=== PATIENT | female | born 1990 | race Caucasian/White ===

== ENCOUNTER 2019-07-25 18:40 | Outpatient (CLI) | payer OTHER, SELFPAY ==
[2019-07-18 10:00] VITALS: BMI 40.7
[2019-07-25 19:50] VITALS: BMI 40.5
[2019-07-25 20:25] LABS: Color, Urine Yellow (Yellow); Glucose, Dipstick 250 mg/dl (Normal); Leukocyte Esterase-Dipstick Negative /ul (Negative); Nitrite-Dipstick Negative (Negative); Occult Blood-Urine Negative /ul (Negative); Protein-Dipstick 30 mg/dl (Negative); Specific Gravity, Urine 1.025 (1.002-1.030); Urine Bilirubin Dipstick Negative (Negative); Urine Clarity Sl. Cloudy (Clear); Urine Urobilinogen 1 mg/dl (Normal)
[2019-07-25 20:28] LABS: Ketone-Dipstick 150 mg/dl (Negative)
[2019-07-25 21:16] LABS: Bedside Glucose 197 mg/dL (70-110)
[2019-07-25 21:28] VITALS: RESP 18
--- NOTE | 2019-08-01 23:12 | OB.TRI.PN ---
Progress Notes Date of Service: 07/25/19 Progress Note: seen for back pain, no fever, some dysuria FHT: 150 Moderate variability appropriate for GA no decelerations positive accels toco no contractions\ a/p back pain- urine culture sent, ua shows some mild abnormalities. reviewed precautions with patient Laboratory Studies: Laboratory Tests 07/25/19 07/25/19 Range/Units 21:10 20:05 Urine Color Yellow (Yellow) Urine Clarity Sl. Cloudy (Clear) Urine pH 5.0 (5.0 - 8.0) Ur Specific [place] 1.025 (1.002-1.030) Urine Protein 30 H (Negative) mg/dl Urine Glucose (UA) 250 H (Normal) mg/dl Urine Ketones 150 H (Negative) mg/dl Urine Occult Blood Negative (Negative) /ul Urine Nitrite Negative (Negative) Urine Bilirubin Negative (Negative) mg/dL Urine Urobilinogen 1 H (Normal) mg/dl Ur Leukocyte Esterase Negative (Negative) /ul POC Glucose 197 H (70-110) mg/dL Multi Select Codes - Urinary/Genital Urinary/Genital CPT Codes: Other Procedure See Report - no charge
== END 2019-07-25 19:28 | disposition home or self-care (01) ==
LOC: WPOUT 18:50 → WP 18:51
PROVIDERS: Referring Provider Obstetrics & Gynecology; Visit Provider Obstetrics & Gynecology
DX: O26.899 Other specified pregnancy related conditions, unspecified trimester (principal); M54.9 Dorsalgia, unspecified; R30.0 Dysuria; R82.90 Unspecified abnormal findings in urine; Z3A.00 Weeks of gestation of pregnancy not specified
CPT/HCPCS: 59025; 59050; 81002; 82962; 87086; 87088; 94760; 99218; G0378

== ENCOUNTER → 2019-08-01 14:56 | Outpatient (CLI) | payer OTHER, SELFPAY ==
[2019-08-01 14:32] VITALS: BMI 40.5
[2019-08-01 15:14] LABS: Hematocrit 35.2 % (37-47); Hemoglobin 11.5 g/dL (12.0-15.0); Mean Corp Hgb Conc 32.7 g/dL (32-36); Mean Corpuscular Hgb 27.6 pg (27.0-32.0); Mean Corpuscular Volume 84.4 fL (81-99); Mean Platelet Vol. 10.2 fl (6.2-12.0); POSITIVE COUNT YES; POSITIVE MORPHOLOGY YES; Platelet Count 216 K/mm3 (150-450); RBC Distribution Width CV 15.3 % (11.6-14.6); RBC Distribution Width SD 46.7 fl (35.1-43.9); Red Blood Count 4.17 M/mm3 (4.2-5.4); White Blood Count 5.8 K/mm3 (4.4-11.0)
[2019-08-01 15:15] LABS: Differential Indicated MANUAL DIFF
[2019-08-01 15:32] LABS: ALB/GLOB Ratio 0.5 RATIO (0.9-2.4); AST(SGOT) 23 U/L (15-37); Alanine Aminotransfer ALT/SGPT 42 U/L (13-56); Alkaline Phosphatase 189 U/L (45-117); Anion Gap 7 (5-15); BUN 7 mg/dL (7-18); BUN/Creat Ratio 18.8 RATIO (10-20); Chloride 107 mmol/L (98-107); Creatinine, Serum 0.37 mg/dL (0.55-1.02); EST Glomerular Filtration Rate 219 mL/min (>60); Est Glom Filt Rate - Afr Amer 265 mL/min (>60); Globulin 4.3 g/dL (2.2-4.2); Glucose 87 mg/dL (74-106); Protein, Total 6.3 g/dL (6.4-8.2); Sodium Level 139 mmol/L (136-145)
[2019-08-01 15:50] LABS: Eosinophil 6 % (0-5); Lymphocyte 16 % (19-41); Metamyelocyte 1 % (0-1); Monocyte 4 % (0-10); Myelocyte 2 (0-0); Neutrophil-Band 2 % (0-5); Neutrophil-Segmented 67 % (47-70); Promyelocyte 2 (0-0); Total Cells Counted 100 (MANUAL DIFF)
[2019-08-01 15:52] LABS: Absolute Lymphocyte Count 0.93 X10^3/uL (0.83-4.51)
[2019-08-01 15:53] LABS: Red Cell Morphology NORM C+C NORMAL (NORM C&C)
[2019-08-02 00:11] LABS: Platelet Estimate ADEQUATE (ADEQ); Platelet Morphology LARGE
[2019-08-04 09:58] LABS: Pathologist Review Reviewed
[2019-08-05 16:23] LABS: EBV Acute VCA IgM < 36.0 U/mL (0.0-35.9); EBV Early Antigen IgG <9.0 U/mL (0.0-8.9); EBV-VCA IgG 33.1 U/mL (0.0-17.9)
[2019-08-11 13:56] LABS: CMV Antibody IgG < 0.60 U/mL (0.00-0.59)
== END ==
PROVIDERS: Referring Provider Obstetrics & Gynecology; Visit Provider Obstetrics & Gynecology
DX: O75.2 Pyrexia during labor, not elsewhere classified (principal)
CPT/HCPCS: 36415; 80053; 85025; 86644; 86663; 86664; 86665

== ENCOUNTER → 2019-08-15 12:07 | Outpatient (CLI) | payer OTHER, SELFPAY ==
[2019-08-15 11:49] VITALS: BMI 40.5
[2019-08-15 12:44] LABS: Absolute Lymphocyte Count 0.95 X10^3/uL (0.83-4.51); Absolute Neutrophil Count 4.7 X10^3/uL (2.0-7.7); Basophil# 0.06 X10^3/uL; Basophil% 0.9 % (0-1); Eosinophil# 0.08 X10^3/uL; Eosinophils% 1.2 % (0-5); Hematocrit 37.6 % (37-47); Hemoglobin 12.3 g/dL (12.0-15.0); Lymphocyte # 0.95 X10^3/ul (4.0); Lymphocyte % 14.4 % (19-41); Mean Corp Hgb Conc 32.7 g/dL (32-36); Mean Corpuscular Hgb 27.9 pg (27.0-32.0); Mean Corpuscular Volume 85.3 fL (81-99); Mean Platelet Vol. 10.9 fl (6.2-12.0); Monocyte# 0.68 X10^3/uL; Monocyte% 10.3 % (0-10); NRBC Flagged by Analyzer 0 % (0-5); Neutrophil # 4.72 X10^3/uL (2.7-7.7); Neutrophil % 71.4 % (47-70); Platelet Count 267 K/mm3 (150-450); RBC Distribution Width CV 15.6 % (11.6-14.6); RBC Distribution Width SD 47.6 fl (35.1-43.9); Red Blood Count 4.41 M/mm3 (4.2-5.4); White Blood Count 6.6 K/mm3 (4.4-11.0)
[2019-08-15 12:59] LABS: ALB/GLOB Ratio 0.6 RATIO (0.9-2.4); AST(SGOT) 12 U/L (15-37); Alanine Aminotransfer ALT/SGPT 22 U/L (13-56); Albumin, Serum 2.7 g/dL (3.2-5.0); Alkaline Phosphatase 183 U/L (45-117); Anion Gap 10 (5-15); BUN 7 mg/dL (7-18); BUN/Creat Ratio 13.3 RATIO (10-20); Calcium,Total 9.4 mg/dL (8.5-10.1); Chloride 104 mmol/L (98-107); Creatinine, Serum 0.52 mg/dL (0.55-1.02); EST Glomerular Filtration Rate 148 mL/min (>60); Est Glom Filt Rate - Afr Amer 178 mL/min (>60); Globulin 4.5 g/dL (2.2-4.2); Glucose 247 mg/dL (74-106); Potassium 3.9 mmol/L (3.5-5.1); Protein, Total 7.2 g/dL (6.4-8.2); Sodium Level 136 mmol/L (136-145)
[2019-08-17 08:40] LABS: EBV Acute VCA IgM < 36.0 U/mL (0.0-35.9); EBV Early Antigen IgG <9.0 U/mL (0.0-8.9); EBV-VCA IgG 68.5 U/mL (0.0-17.9)
== END ==
PROVIDERS: Obstetrics & Gynecology; Referring Provider Nurse Practitioner Women's Health; Visit Provider Nurse Practitioner Women's Health
DX: O23.00 Infections of kidney in pregnancy, unspecified trimester (principal); Z3A.00 Weeks of gestation of pregnancy not specified
CPT/HCPCS: 36415; 80053; 85025; 86645; 86663; 86664; 86665

== ENCOUNTER → 2019-08-28 13:32 | Outpatient (CLI) | payer OTHER, SELFPAY ==
[2019-08-25 12:22] VITALS: BMI 40.5
--- NOTE | 2019-08-28 13:35 | US_ITS ---
STUDY: OBSTETRICAL ULTRASOUND - BIOPHYSICAL PROFILE REASON FOR EXAM: Female, 29 years old well-being. LMP: 01/02/19. PRIOR ULTRASOUND: None. TECHNIQUE: Transabdominal TECHNICAL QUALITY: Adequate. FINDINGS: There is a single intrauterine fetus. The fetus is in a cephalic presentation. There is demonstrated cardiac activity with a heart rate of 138 bpm. There is increased amniotic fluid consistent with polyhydramnios. The largest amniotic fluid pocket measures 11.4 cm. The amniotic fluid index (RAVINDRA) is 31.4 cm. The placenta is posterior in location and is not low lying. There are Grade 1 placental changes. Age by LMP: 34 weeks, 0 days. DONAVAN by LMP: 01/01/2019. BIOPHYSICAL PROFILE: Breathing Movements (FBM): 2 Gross Body Movements (GBM): 2 Tone (FT): 2 Amniotic Fluid Volume (AFV): 2 TOTAL SCORE: 8 / 8 US/Biophysical Profile IMPRESSION: Normal biophysical profile of 8. Polyhydramnios as described above. Electronically Signed: Nelia Drummond MD at 5:03 EDT , Service support ,
== END ==
PROVIDERS: Referring Provider Nurse Practitioner Women's Health; Visit Provider Nurse Practitioner Women's Health
DX: O09.93 Supervision of high risk pregnancy, unspecified, third trimester (principal); O23.00 Infections of kidney in pregnancy, unspecified trimester; O10.919 Unspecified pre-existing hypertension complicating pregnancy, unspecified trimester; O99.213 Obesity complicating pregnancy, third trimester; Z3A.00 Weeks of gestation of pregnancy not specified
CPT/HCPCS: 76818

== ENCOUNTER 2019-09-02 15:05 | Outpatient (CLI) | payer OTHER, SELFPAY ==
[2019-08-25 12:22] VITALS: BMI 40.5
--- NOTE | 2019-09-02 15:10 | US_ITS ---
STUDY: OBSTETRICAL ULTRASOUND - BIOPHYSICAL PROFILE REASON FOR EXAM: Female, 29 years old well being. LMP: January 02, 2019. PRIOR ULTRASOUND: August 28, 2019. TECHNIQUE: Transabdominal TECHNICAL QUALITY: Adequate. FINDINGS: There is a single intrauterine fetus. The fetus is in a cephalic presentation. There is demonstrated cardiac activity with a heart rate of 150 bpm. There is increased amniotic fluid consistent with polyhydramnios. The largest amniotic fluid pocket measures 12.2 cm. The amniotic fluid index (RAVINDRA) is 37.78 cm. The placenta is posterior in location and is not low lying. There are Grade 1 placental changes. Age by LMP: 34 weeks, 5 days. DONAVAN by LMP: October 09, 2019. BIOPHYSICAL PROFILE: Breathing Movements (FBM): 0 Gross Body Movements (GBM): 2 Tone (FT): 2 Amniotic Fluid Volume (AFV): 2 TOTAL SCORE: 6 / 8 US/Biophysical Profile IMPRESSION: 1. biophysical profile of 6/8. 2. Polyhydramnios. Electronically Signed: Eder Tafoya DO at 19:32 EDT Tel [phone], Service support ,
[2019-09-02 17:05] VITALS: BMI 28.0
--- NOTE | 2019-09-02 17:13 | OB.TRI.PN ---
Progress Notes Date of Service: 09/02/19 Progress Note: Patient presents for triage evaluation secondary to 6 out of 8 BPP FHT: 140 Moderate variability reactive no decelerations category I tracing [place]: No regular contractions Assessment and plan: Polyhydramnios 6 out of 8 BPP reactive NST, reassuring maternal and status patient discharged to home to follow-up as scheduled. 8 out of 10 BPP overall. See problem list details for additional plan information. - Problem List (1) Abnormal test Status: Acute Multi Select Codes - Urinary/Genital Urinary/Genital CPT Codes: 39080-89 non-stress test Interp
== END 2019-09-02 17:30 | disposition home or self-care (01) ==
LOC: US 16:44 → OBT 16:44
PROVIDERS: Referring Provider Nurse Practitioner Women's Health; Visit Provider Nurse Practitioner Women's Health
DX: O40.3XX0 Polyhydramnios, third trimester, not applicable or unspecified (principal); Z3A.34 34 weeks gestation of pregnancy
CPT/HCPCS: 59025; 59050; 76818; 99218; G0378

== ENCOUNTER → 2019-09-04 11:06 | Outpatient (CLI) | payer OTHER, SELFPAY ==
[2019-09-04 10:12] VITALS: BMI 28.0
[2019-09-04 11:30] LABS: Protein, Urine (Random) < 6.0 mg/dL (<11.9)
== END ==
PROVIDERS: Visit Provider Obstetrics & Gynecology
DX: O10.919 Unspecified pre-existing hypertension complicating pregnancy, unspecified trimester (principal); Z3A.35 35 weeks gestation of pregnancy
CPT/HCPCS: 82570; 84156; 87081

== ENCOUNTER 2019-09-05 11:06 | Outpatient (CLI) | payer OTHER, SELFPAY ==
[2019-09-04 11:24] VITALS: BMI 28.0
[2019-09-05 11:59] LABS: Hematocrit 38.4 % (37-47); Hemoglobin 12.7 g/dL (12.0-15.0); Mean Corp Hgb Conc 33.1 g/dL (32-36); Mean Corpuscular Hgb 28.2 pg (27.0-32.0); Mean Corpuscular Volume 85.1 fL (81-99); Mean Platelet Vol. 11.4 fl (6.2-12.0); Platelet Count 260 K/mm3 (150-450); RBC Distribution Width CV 15.6 % (11.6-14.6); RBC Distribution Width SD 48.1 fl (35.1-43.9); Red Blood Count 4.51 M/mm3 (4.2-5.4); White Blood Count 10.4 K/mm3 (4.4-11.0)
[2019-09-05 12:05] LABS: Prothrombin Time (Protime)PT. 12.8 SECONDS (11.7-14.9)
[2019-09-05 12:06] LABS: Partial Thromboplast Time 24.9 Seconds (24.1-36.2)
[2019-09-05 12:09] LABS: AST(SGOT) 8 U/L (15-37); Alanine Aminotransfer ALT/SGPT 15 U/L (13-56); Creatinine, Serum 0.42 mg/dL (0.55-1.02); EST Glomerular Filtration Rate 191 mL/min (>60); Est Glom Filt Rate - Afr Amer 231 mL/min (>60); Uric Acid 4.9 mg/dL (2.6-6.0)
[2019-09-05 12:31] LABS: Protein, Urine (Random) 26.9 mg/dL (<11.9); Protein:Creat Ratio 155 mg/g CRE (0-200)
[2019-09-05 12:51] VITALS: BMI 45.6
--- NOTE | 2019-09-06 00:52 | OB.TRI.PN ---
Progress Notes Date of Service: 09/05/19 Progress Note: Patient evaluated for elevated blood pressures at home. Normal blood pressures here and labs within normal limits negative for proteinuria FHT: 140 Moderate variability reactive no decelerations category I tracing [place]: No regular contractions Assessment and plan normal blood pressures reassuring testing follow-up next week. Discussed plan of care for delivery at 37 weeks and discussed with maternal- medicine if development of preeclampsia would recommend immediate delivery. Patient understands preeclampsia precautions and stable for discharge to home Laboratory Studies: Laboratory Tests 09/05/19 09/05/19 09/05/19 Range/Units 12:05 11:50 11:50 WBC (4.4-11.0) K/mm3 RBC (4.2-5.4) M/mm3 Hgb (12.0-15.0) g/dL Hct (37-47) % MCV (81-99) fL MCH (27.0-32.0) pg MCHC (32-36) g/dL RDW Std Deviation (35.1-43.9) fl RDW Coeff of Alanis (11.6-14.6) % Plt Count (150-450) K/mm3 MPV (6.2-12.0) fl PT 12.8 (11.7-14.9) SECONDS INR 1.0 APTT 24.9 (24.1-36.2) Seconds Creatinine 0.42 L (0.55-1.02) mg/dL Est GFR (MDRD) Af Amer 231 (>60) mL/min Est GFR (MDRD) Non-Af 191 (>60) mL/min Uric Acid 4.9 (2.6-6.0) mg/dL AST 8 L (15-37) U/L ALT 15 (13-56) U/L U Random Total Protein 26.9 H (<11.9) mg/dL Urine Creatinine 173.00 (NO RANGE EST.) mg/dL Protein/Creatinin Ratio 155 (0-200) mg/g CRE 09/05/19 Range/Units 11:50 WBC 10.4 (4.4-11.0) K/mm3 RBC 4.51 (4.2-5.4) M/mm3 Hgb 12.7 (12.0-15.0) g/dL Hct 38.4 (37-47) % MCV 85.1 (81-99) fL MCH 28.2 (27.0-32.0) pg MCHC 33.1 (32-36) g/dL RDW Std Deviation 48.1 H (35.1-43.9) fl RDW Coeff of Alanis 15.6 H (11.6-14.6) % Plt Count 260 (150-450) K/mm3 MPV 11.4 (6.2-12.0) fl PT (11.7-14.9) SECONDS INR APTT (24.1-36.2) Seconds Creatinine (0.55-1.02) mg/dL Est GFR (MDRD) Af Amer (>60) mL/min Est GFR (MDRD) Non-Af (>60) mL/min Uric Acid (2.6-6.0) mg/dL AST (15-37) U/L ALT (13-56) U/L U Random Total Protein (<11.9) mg/dL Urine Creatinine (NO RANGE EST.) mg/dL Protein/Creatinin Ratio (0-200) mg/g CRE Multi Select Codes - Urinary/Genital Urinary/Genital CPT Codes: 19907-45 non-stress test Interp
== END 2019-09-05 13:20 | disposition home or self-care (01) ==
LOC: WPOUT 11:13 → WP 11:13 → OBT 11:18
PROVIDERS: Referring Provider Obstetrics & Gynecology; Visit Provider Obstetrics & Gynecology
DX: O26.899 Other specified pregnancy related conditions, unspecified trimester (principal); R03.0 Elevated blood-pressure reading, without diagnosis of hypertension
CPT/HCPCS: 36415; 59025; 59050; 82565; 82570; 84156; 84450; 84460; 84550; 85027; 85610; 85730; 99218; G0378

== ENCOUNTER 2019-09-08 16:15 | Outpatient (CLI) | payer OTHER, SELFPAY ==
[2019-09-08 15:56] VITALS: BMI 45.6
[2019-09-08 16:26] VITALS: BMI 42.8
[2019-09-08 16:38] LABS: Protein:Creat Ratio 179 mg/g CRE (0-200)
[2019-09-08 16:55] LABS: Hematocrit 36.3 % (37-47); Mean Corp Hgb Conc 33.1 g/dL (32-36); Mean Corpuscular Hgb 28.1 pg (27.0-32.0); Mean Platelet Vol. 11.5 fl (6.2-12.0); Platelet Count 230 K/mm3 (150-450); RBC Distribution Width CV 15.7 % (11.6-14.6); RBC Distribution Width SD 48.5 fl (35.1-43.9); Red Blood Count 4.27 M/mm3 (4.2-5.4); White Blood Count 9.7 K/mm3 (4.4-11.0)
[2019-09-08 16:58] LABS: Prothrombin Time (Protime)PT. 12.6 SECONDS (11.7-14.9)
[2019-09-08 16:59] LABS: Partial Thromboplast Time 25.9 Seconds (24.1-36.2)
[2019-09-08 17:21] LABS: AST(SGOT) 15 U/L (15-37); Alanine Aminotransfer ALT/SGPT 17 U/L (13-56); Creatinine, Serum 0.51 mg/dL (0.55-1.02); EST Glomerular Filtration Rate 154 mL/min (>60); Est Glom Filt Rate - Afr Amer 186 mL/min (>60); Estimated Creatinine Clearance 165.67 ml/min; Uric Acid 5.1 mg/dL (2.6-6.0)
--- NOTE | 2019-09-08 22:37 | OB.TRI.PN ---
Progress Notes Date of Service: 09/08/19 Progress Note: Patient presents for triage evaluation secondary to elevated blood pressures. Serial blood pressures although initially elevated all repeats were within normal limits. Labs were done and were within normal limits and negative for proteinuria. Patient is asymptomatic with no new symptoms present. FHT: 130 Moderate variability reactive no decelerations category I tracing [place]: no regular Contractions Assessment and plan: Type 2 diabetes with chronic hypertension reactive NST, reassuring maternal and status patient discharged to home to follow-up with MFM at the end of the week. See problem list details for additional plan information. Laboratory Studies: Laboratory Tests 09/08/19 09/08/19 09/08/19 Range/Units 16:40 16:40 16:40 WBC 9.7 (4.4-11.0) K/mm3 RBC 4.27 (4.2-5.4) M/mm3 Hgb 12.0 (12.0-15.0) g/dL Hct 36.3 L (37-47) % MCV 85.0 (81-99) fL MCH 28.1 (27.0-32.0) pg MCHC 33.1 (32-36) g/dL RDW Std Deviation 48.5 H (35.1-43.9) fl RDW Coeff of Alanis 15.7 H (11.6-14.6) % Plt Count 230 (150-450) K/mm3 MPV 11.5 (6.2-12.0) fl PT 12.6 (11.7-14.9) SECONDS INR 1.0 APTT 25.9 (24.1-36.2) Seconds Creatinine 0.51 L (0.55-1.02) mg/dL Estim Creat Clear Calc 165.67 ml/min Est GFR (MDRD) Af Amer 186 (>60) mL/min Est GFR (MDRD) Non-Af 154 (>60) mL/min Uric Acid 5.1 (2.6-6.0) mg/dL AST 15 (15-37) U/L ALT 17 (13-56) U/L U Random Total Protein (<11.9) mg/dL Urine Creatinine (NO RANGE EST.) mg/dL Protein/Creatinin Ratio (0-200) mg/g CRE 09/08/19 Range/Units 16:25 WBC (4.4-11.0) K/mm3 RBC (4.2-5.4) M/mm3 Hgb (12.0-15.0) g/dL Hct (37-47) % MCV (81-99) fL MCH (27.0-32.0) pg MCHC (32-36) g/dL RDW Std Deviation (35.1-43.9) fl RDW Coeff of Alanis (11.6-14.6) % Plt Count (150-450) K/mm3 MPV (6.2-12.0) fl PT (11.7-14.9) SECONDS INR APTT (24.1-36.2) Seconds Creatinine (0.55-1.02) mg/dL Estim Creat Clear Calc ml/min Est GFR (MDRD) Af Amer (>60) mL/min Est GFR (MDRD) Non-Af (>60) mL/min Uric Acid (2.6-6.0) mg/dL AST (15-37) U/L ALT (13-56) U/L U Random Total Protein 25.0 H (<11.9) mg/dL Urine Creatinine 140.00 (NO RANGE EST.) mg/dL Protein/Creatinin Ratio 179 (0-200) mg/g CRE - Problem List (1) Elevated blood pressure affecting in third trimester, antepartum Status: Acute Comment: triage and labs done 09/08- serial bps initially high and then WNL. dc home preeclampsia precautions, [facility] recommends delivery immediately if develops preeclampsia (2) Modified White class B pregestational diabetes mellitus Status: Acute Comment: last HgA1c 6.2, managed by [facility]:32 week US there 98% growth twice weekly testing: BPP at [facility] and NST at [facility] Growth US there at 36 week (3) Chronic hypertension affecting Status: Chronic Comment: labetalol 200, baby asa daily, nl baseline labs. Multi Select Codes - Urinary/Genital Urinary/Genital CPT Codes: 40835-23 non-stress test Interp
== END 2019-09-08 18:00 | disposition home or self-care (01) ==
LOC: WPOUT 16:21 → OBT 16:21
PROVIDERS: Referring Provider Obstetrics & Gynecology; Visit Provider Obstetrics & Gynecology
DX: O10.913 Unspecified pre-existing hypertension complicating pregnancy, third trimester (principal); O24.113 Pre-existing type 2 diabetes mellitus, in pregnancy, third trimester; E11.9 Type 2 diabetes mellitus without complications; Z79.4 Long term (current) use of insulin; Z3A.00 Weeks of gestation of pregnancy not specified
CPT/HCPCS: 36415; 59025; 59050; 82565; 82570; 84156; 84450; 84460; 84550; 85027; 85610; 85730; 99218; G0378

== ENCOUNTER → 2019-09-09 16:50 | Outpatient (CLI) | payer OTHER, SELFPAY ==
[2019-09-09 16:30] VITALS: BMI 42.8
[2019-09-09 17:05] LABS: Protein, Urine (Random) 22.4 mg/dL (<11.9); Protein:Creat Ratio 207 mg/g CRE (0-200)
== END ==
PROVIDERS: Visit Provider Nurse Practitioner Women's Health
DX: O10.919 Unspecified pre-existing hypertension complicating pregnancy, unspecified trimester (principal); Z3A.00 Weeks of gestation of pregnancy not specified
CPT/HCPCS: 82570; 84156

== ENCOUNTER 2019-09-11 05:43 | Inpatient (IN) | payer OTHER, SELFPAY ==
[2019-09-09 16:30] VITALS: BMI 42.8
[2019-09-11 05:26] VITALS: BMI 43.0
[2019-09-11 05:42] LABS: ROM Internal Control Test YES-OK TO RESULT pt. (Internal QC)
[2019-09-11 05:43] LABS: ROM Patient Test POSITIVE (Negative)
[2019-09-11 06:10] LABS: Absolute Lymphocyte Count 1.71 X10^3/uL (0.83-4.51); Absolute Neutrophil Count 6.8 X10^3/uL (2.0-7.7); Basophil# 0.07 X10^3/uL; Basophil% 0.7 % (0-1); Eosinophil# 0.12 X10^3/uL; Eosinophils% 1.2 % (0-5); Hematocrit 37.8 % (37-47); Hemoglobin 12.4 g/dL (12.0-15.0); Lymphocyte # 1.71 X10^3/ul (4.0); Lymphocyte % 17.8 % (19-41); Mean Corp Hgb Conc 32.8 g/dL (32-36); Mean Corpuscular Volume 85.3 fL (81-99); Mean Platelet Vol. 11.6 fl (6.2-12.0); Monocyte# 0.77 X10^3/uL; NRBC Flagged by Analyzer 0 % (0-5); Neutrophil # 6.79 X10^3/uL (2.7-7.7); Neutrophil % 70.6 % (47-70); Platelet Count 220 K/mm3 (150-450); RBC Distribution Width CV 15.4 % (11.6-14.6); RBC Distribution Width SD 47.7 fl (35.1-43.9); Red Blood Count 4.43 M/mm3 (4.2-5.4); White Blood Count 9.6 K/mm3 (4.4-11.0)
[2019-09-11] MEDS: Lactated Ringers 1,000 ML 50 ML IV (06:10)
[2019-09-11] MEDS: 0.9% Saline Lock 10 ML Syringe IV ×2 (06:20→17:33)
[2019-09-11 06:24] LABS: AST(SGOT) 6 U/L (15-37); Alanine Aminotransfer ALT/SGPT 18 U/L (13-56); Creatinine, Serum 0.39 mg/dL (0.55-1.02); EST Glomerular Filtration Rate 207 mL/min (>60); Est Glom Filt Rate - Afr Amer 251 mL/min (>60); Estimated Creatinine Clearance 216.64 ml/min; Uric Acid 5.1 mg/dL (2.6-6.0)
[2019-09-11 06:25] LABS: Prothrombin Time (Protime)PT. 12.8 SECONDS (11.7-14.9)
[2019-09-11 06:26] LABS: Partial Thromboplast Time 26.5 Seconds (24.1-36.2)
[2019-09-11 07:05] LABS: Bedside Glucose 118 mg/dL (70-110)
[2019-09-11 07:05] LABS: Bedside Glucose 110 mg/dL (70-110)
[2019-09-11 08:06] LABS: Bedside Glucose 114 mg/dL (70-110)
[2019-09-11 08:09] LABS: Protein, Urine (Random) 16.3 mg/dL (<11.9); Protein:Creat Ratio 165 mg/g CRE (0-200)
[2019-09-11] MEDS: Labetalol 200 MG Tablet PO ×2 (08:55→22:10)
[2019-09-11] MEDS: Oxytocin 30 units/NS 500 ml 30 UNITS/500 ML IV.SOLN IV (08:58)
[2019-09-11 09:00] LABS: Bedside Glucose 113 mg/dL (70-110)
[2019-09-11] MEDS: Lactated Ringers 500 ML 999 ML IV ×3 (09:36→21:13)
[2019-09-11] MEDS: fentaNYL-bupivacaine (epidural) 100 ML BAG EPIDURAL ×3 (10:10→20:39)
[2019-09-11 10:26] LABS: Bedside Glucose 99 mg/dL (70-110)
[2019-09-11 10:56] LABS: Bedside Glucose 107 mg/dL (70-110)
[2019-09-11 11:56] LABS: Bedside Glucose 114 mg/dL (70-110)
[2019-09-11] MEDS: Lactated Ringers 1,000 ML 200 ML IV ×2 (12:30→17:32)
[2019-09-11 13:16] LABS: Bedside Glucose 103 mg/dL (70-110)
[2019-09-11 14:16] LABS: Bedside Glucose 104 mg/dL (70-110)
[2019-09-11 15:06] LABS: Bedside Glucose 91 mg/dL (70-110)
[2019-09-11] MEDS: Amnioinfusion- 0.9% NS 1,000 ML IV.SOLN. 500 ML INTRA-UTER (15:39)
[2019-09-11 16:10] LABS: Bedside Glucose 88 mg/dL (70-110)
[2019-09-11 17:25] LABS: Bedside Glucose 82 mg/dL (70-110)
[2019-09-11 18:56] LABS: Bedside Glucose 78 mg/dL (70-110)
[2019-09-11 19:00] LABS: Bedside Glucose 93 mg/dL (70-110)
[2019-09-11 20:21] LABS: Bedside Glucose 88 mg/dL (70-110)
[2019-09-11 21:15] LABS: Bedside Glucose 92 mg/dL (70-110)
[2019-09-11] MEDS: Oxytocin 30 units/NS 500 ml 30 UNITS/500 ML IV.SOLN 334 UNITS IV (21:34)
[2019-09-11] MEDS: Carboprost Tromethamine 250 MCG/ML Ampul IM (21:43)
--- NOTE | 2019-09-11 21:58 | PCM.HP.OB ---
- Problem List (1) premature rupture of membranes (PPROM) with onset of labor after 24 hours of rupture in first trimester, antepartum Status: Acute (2) Elevated blood pressure affecting in third trimester, antepartum Status: Acute Comment: triage and labs done 09/08- serial bps initially high and then WNL. dc home preeclampsia precautions, [facility] recommends delivery immediately if develops preeclampsia (3) General counseling and advice for contraceptive management Status: Acute Comment: Wants pp BTO (4) Pyelonephritis affecting Status: Acute Qualifiers: Comment: ATB rest of , possible viral origin? check BV titers (5) Status: Acute Qualifiers: Comment: Anatomy US limited limited views due to position. On 07/18/19 it was recommended FU US. AFP negative. (6) Obesity affecting in third trimester Status: Acute (7) Modified White class B pregestational diabetes mellitus Status: Acute Comment: [facility]% growth twice weekly testing: BPP at [facility] and NST at [facility] Growth US there at 36 week (8) Chronic hypertension affecting Status: Chronic Comment: labetalol 200, baby asa daily, nl baseline labs. (9) Supervision of high risk in third trimester Status: Acute Comment: DONAVAN 10/09/19 boy Jone girl Edith Guillermo History Date of Admission: 09/11/19 Final DONAVAN: 10/09/19 Gestational age: 36 Weeks and 0 Days History of this : This is a 29 year-old, , at 36 weeks gestational age resents with clear spontaneous rupture of membranes at 36 weeks. Patient was GBS negative. She has had a regnancy complicated by uncontrolled diabetes and severe polyhydramnios. She has also had a history of chronic hypertension that was controlled on labetalol. Medical History: Medical History (Last Reviewed 09/09/19 @ 15:58 by Janessa Carolina) Diabetes E11.9 PCOS (polycystic ovarian syndrome) E28.2 Hypertension I10 Surgical History: Surgical History (Last Reviewed 09/09/19 @ 15:58 by Janessa Carolina) History of wisdom tooth extraction, class II edentulism K08.492 Hx laparoscopic cholecystectomy Z90.49 Allergies clavulanic acid [From Augmentin] Allergy (Mild, Verified 09/09/19 15:58) Anaphylaxis Gadolinium-MRI Contrast Medium Allergy (Mild, Verified 09/09/19 15:58) Rash Sulfa (Sulfonamide Antibiotics) Allergy (Mild, Verified 09/09/19 15:58) Anaphylaxis sulfamethoxazole [From Bactrim] Allergy (Verified 09/11/19 05:38) Anaphylaxis trimethoprim [From Bactrim] Allergy (Verified 09/11/19 05:38) Anaphylaxis Home Medications: Home Medications famotidine 20 mg tablet 20 mg PO BID 07/18/19 insulin lispro (U-100) 100 unit/mL subcutaneous cartridge 80 units SC BREAKFAST 07/18/19 loratadine 10 mg tablet 10 mg PO DAILY 07/18/19 vitamin#30 30 mg iron-10 mg iron-folic acid 1 mg-omg3 capsule 1 cap PO DAILY cap 07/18/19 Insulin Lispro 44 unit SQ LUNCH 07/25/19 Insulin NPH Human Isophane [Humulin N Vial] 64 units SQ DAILY 07/25/19 Unisom 25 mg PO QHS PRN 09/02/19 labetalol 200 mg tablet 200 mg PO BID tab 09/10/19 Tylenol 1,000 mg PO Q8H PRN PRN 09/11/19 Smoking Status: Never smoker Alcohol: None Number of Fetus(es): 1 NST - FHR Rate Baby A Baseline: 140 Variability:: Moderate Accelerations:: 15 x 15 Decelerations:: None NST Reactive:: Yes FHR Category:: Category I Uterine Activity:: irregular History Past Pregnancies: Past Pregnancies previous term diabetes Labs: Mom's Labs & Results 09/11/19 09/11/19 09/11/19 05:13 05:29 05:45 WBC 9.6 RBC 4.43 Hgb 12.4 Hct 37.8 MCV 85.3 MCH 28.0 MCHC 32.8 RDW Std Deviation 47.7 H RDW Coeff of Alanis 15.4 H Plt Count 220 MPV 11.6 Immature Gran % (Auto) 1.700 H Neut % (Auto) 70.6 H Lymph % (Auto) 17.8 L [place] % (Auto) 8.0 Eos % (Auto) 1.2 Baso % (Auto) 0.7 Absolute Neuts (auto) 6.8 Absolute Lymphs (auto) 1.71 Nucleated RBC % 0 PT 12.8 INR 1.0 APTT 26.5 Creatinine Estim Creat Clear Calc Est GFR (MDRD) Af Amer Est GFR (MDRD) Non-Af Uric Acid AST ALT U Random Total Protein Urine Creatinine Protein/Creatinin Ratio Vag Amniotic Fld Detect POSITIVE H POC Glucose Blood Type Antibody Screen 09/11/19 09/11/19 09/11/19 05:45 05:45 05:49 WBC RBC Hgb Hct MCV MCH MCHC RDW Std Deviation RDW Coeff of Alanis Plt Count MPV Immature Gran % (Auto) Neut % (Auto) Lymph % (Auto) [place] % (Auto) Eos % (Auto) Baso % (Auto) Absolute Neuts (auto) Absolute Lymphs (auto) Nucleated RBC % PT INR APTT Creatinine 0.39 L Estim Creat Clear Calc 216.64 Est GFR (MDRD) Af Amer 251 Est GFR (MDRD) Non-Af 207 Uric Acid 5.1 AST 6 L ALT 18 U Random Total Protein Urine Creatinine Protein/Creatinin Ratio Vag Amniotic Fld Detect POC Glucose 118 H Blood Type O POSITIVE Antibody Screen NEGATIVE 09/11/19 09/11/19 09/11/19 06:52 07:45 07:59 WBC RBC Hgb Hct MCV MCH MCHC RDW Std Deviation RDW Coeff of Alanis Plt Count MPV Immature Gran % (Auto) Neut % (Auto) Lymph % (Auto) [place] % (Auto) Eos % (Auto) Baso % (Auto) Absolute Neuts (auto) Absolute Lymphs (auto) Nucleated RBC % PT INR APTT Creatinine Estim Creat Clear Calc Est GFR (MDRD) Af Amer Est GFR (MDRD) Non-Af Uric Acid AST ALT U Random Total Protein 16.3 H Urine Creatinine 99.00 Protein/Creatinin Ratio 165 Vag Amniotic Fld Detect POC Glucose 110 114 H Blood Type Antibody Screen 09/11/19 09/11/19 09/11/19 08:57 10:08 10:51 WBC RBC Hgb Hct MCV MCH MCHC RDW Std Deviation RDW Coeff of Alanis Plt Count MPV Immature Gran % (Auto) Neut % (Auto) Lymph % (Auto) [place] % (Auto) Eos % (Auto) Baso % (Auto) Absolute Neuts (auto) Absolute Lymphs (auto) Nucleated RBC % PT INR APTT Creatinine Estim Creat Clear Calc Est GFR (MDRD) Af Amer Est GFR (MDRD) Non-Af Uric Acid AST ALT U Random Total Protein Urine Creatinine Protein/Creatinin Ratio Vag Amniotic Fld Detect POC Glucose 113 H 99 107 Blood Type Antibody Screen 09/11/19 09/11/19 09/11/19 11:52 13:05 13:53 WBC RBC Hgb Hct MCV MCH MCHC RDW Std Deviation RDW Coeff of Alanis Plt Count MPV Immature Gran % (Auto) Neut % (Auto) Lymph % (Auto) [place] % (Auto) Eos % (Auto) Baso % (Auto) Absolute Neuts (auto) Absolute Lymphs (auto) Nucleated RBC % PT INR APTT Creatinine Estim Creat Clear Calc Est GFR (MDRD) Af Amer Est GFR (MDRD) Non-Af Uric Acid AST ALT U Random Total Protein Urine Creatinine Protein/Creatinin Ratio Vag Amniotic Fld Detect POC Glucose 114 H 103 104 Blood Type Antibody Screen 09/11/19 09/11/19 09/11/19 15:03 15:58 17:10 WBC RBC Hgb Hct MCV MCH MCHC RDW Std Deviation RDW Coeff of Alanis Plt Count MPV Immature Gran % (Auto) Neut % (Auto) Lymph % (Auto) [place] % (Auto) Eos % (Auto) Baso % (Auto) Absolute Neuts (auto) Absolute Lymphs (auto) Nucleated RBC % PT INR APTT Creatinine Estim Creat Clear Calc Est GFR (MDRD) Af Amer Est GFR (MDRD) Non-Af Uric Acid AST ALT U Random Total Protein Urine Creatinine Protein/Creatinin Ratio Vag Amniotic Fld Detect POC Glucose 91 88 82 Blood Type Antibody Screen 09/11/19 09/11/19 09/11/19 17:59 18:54 19:59 WBC RBC Hgb Hct MCV MCH MCHC RDW Std Deviation RDW Coeff of Alanis Plt Count MPV Immature Gran % (Auto) Neut % (Auto) Lymph % (Auto) [place] % (Auto) Eos % (Auto) Baso % (Auto) Absolute Neuts (auto) Absolute Lymphs (auto) Nucleated RBC % PT INR APTT Creatinine Estim Creat Clear Calc Est GFR (MDRD) Af Amer Est GFR (MDRD) Non-Af Uric Acid AST ALT U Random Total Protein Urine Creatinine Protein/Creatinin Ratio Vag Amniotic Fld Detect POC Glucose 78 93 88 Blood Type Antibody Screen 09/11/19 21:02 WBC RBC Hgb Hct MCV MCH MCHC RDW Std Deviation RDW Coeff of Alanis Plt Count MPV Immature Gran % (Auto) Neut % (Auto) Lymph % (Auto) [place] % (Auto) Eos % (Auto) Baso % (Auto) Absolute Neuts (auto) Absolute Lymphs (auto) Nucleated RBC % PT INR APTT Creatinine Estim Creat Clear Calc Est GFR (MDRD) Af Amer Est GFR (MDRD) Non-Af Uric Acid AST ALT U Random Total Protein Urine Creatinine Protein/Creatinin Ratio Vag Amniotic Fld Detect POC Glucose 92 Blood Type Antibody Screen Course Did the patient receive Yes care? Labs Blood Type: O RH: POSITIVE RPR/VDRL/Syphilis Nonreactive Rubella status Immune HbSAg Negative Date Done: 01/29/19 Chlamydia Negative Gonorrhea Negative HIV/AIDS Non-Reactive Group B Strep: Negative Current Obstetrical History Gestational Diabetes No: type 2 diabetes Incompetent Cervix No Infertility No IUGR No Macrosomia Yes Hypertension/Pre-eclampsia Yes Placenta Previa/Abruption No PTL/PROM No Uterine anomaly No Oligohydramnios No Polyhydramnios Yes Multiple gestation No Past Medical History Asthma No Diabetes Yes: type 2 Hypertension Yes Heart disease No Mitral valve prolapse No Neurologic/Seizure disorder/ No Migraines Kidney disease No Liver disease No Varicosities No Clotting disorders/Hx of DVT No Thyroid Dysfunction No Other medical diseases No Psychiatric disorders No Major trauma No Abnormal PAP smear No Sleep apnea No Mammogram in the last 2 years No Social History Marital Status: SINGLE Alleged father Navin Hx Smoking No Smoking Status Never smoker Expected Infant Delivery Method: Spontaneous Vaginal Review of Systems Constitutional: Denies: Fever, Malaise Eyes: Denies: Blurred vision, Vision Change HEENT: Denies: Head Aches, Visual Changes Cardiovascular: Denies: Chest Pain, Palpitations Respiratory: Denies: Cough, Shortness of Breath, Wheezing Gastrointestinal: Denies: Abdominal Pain, Diarrhea, Nausea, Vomiting Genitourinary: Denies: Dysuria, Hematuria Musculoskeletal: Denies: Joint Pain, Muscle pain Skin: Denies: Lesions, Rash Neurological: Denies: Blurred vision, Focal weakness, Headaches Psychiatric: Denies: Anxiety, Depression Endocrine: Denies: Heat/ Cold Intolerance Hematologic/ Lymphatic: Denies: Easy Bruising, Easy Bleeding Physical Exam General: Alert, Cooperative, No apparent distress HEENT: Atraumatic, Normocephalic. Negative for: Thyromegaly, Lymphadenopathy Cardiovascular: Regular rate Lungs: Normal air movement Abdomen: Soft, Non Tender, Gravid Neurological: Deep Tendon Reflexes 2+/4 and Symmetrical, Neuro grossly intact. 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 Negative for: Vulvar lesions Estimated gestational size: Large for gestational age Presentation: Cephalic Cervix Dilation (cm): 1.5 Assessment/Plan All Active Problems (Last Reviewed 09/09/19 @ 15:58 by Janessa Carolina) Abnormal test (Acute) Elevated blood pressure affecting in third trimester, antepartum (Acute) premature rupture of membranes (PPROM) with onset of labor after 24 hours of rupture in first trimester, antepartum (Acute) General counseling and advice for contraceptive management (Acute) Pyelonephritis affecting (Acute) (Acute) Obesity affecting in third trimester (Acute) Modified White class B pregestational diabetes mellitus (Acute) Supervision of high risk in third trimester (Acute) This is a 29 year-old, at 36 weeks gestational age presents PPROM. prematurity- no steroids indicated due to preexisting diabetes pprom- gbs neg no signs of infection diabetes- check BS q 1 hr in labor, insulin drip PRN cHTN- continue labetalol polyhydramnios
--- NOTE | 2019-09-11 22:02 | OP.PCM_ITS ---
Problem List (1) premature rupture of membranes (PPROM) with onset of labor after 24 hours of rupture in first trimester, antepartum Status: Acute (2) Elevated blood pressure affecting in third trimester, antepartum Status: Acute Comment: triage and labs done 09/08- serial bps initially high and then WNL. dc home preeclampsia precautions, [facility] recommends delivery immediately if develops preeclampsia (3) General counseling and advice for contraceptive management Status: Acute Comment: Wants pp BTO (4) Pyelonephritis affecting Status: Acute Qualifiers: Comment: ATB rest of , possible viral origin? check BV titers (5) Status: Acute Qualifiers: Comment: Anatomy US limited limited views due to position. On 07/18/19 it was recommended FU US. AFP negative. (6) Obesity affecting in third trimester Status: Acute (7) Modified White class B pregestational diabetes mellitus Status: Acute Comment: [facility]% growth twice weekly testing: BPP at [facility] and NST at [facility] Growth US there at 36 week (8) Chronic hypertension affecting Status: Chronic Comment: labetalol 200, baby asa daily, nl baseline labs. (9) Supervision of high risk in third trimester Status: Acute Comment: DONAVAN 10/09/19 boy Ojne girl Edith Guillermo Vaginal Delivery Maternal Presentation: Active Labor, Spontaneous Rupture of Membranes 36 weeks with PPROM clear fluid Method of Induction: Pitocin Medical Reason for Induction: Premature Rupture of Membranes Amniotic Membrane Rupture Type: Spontaneous at home Amniotic Fluid Description: Clear Final DONAVAN: 10/09/19 Gestational age: 36 Weeks and 0 Days Date of Procedure: 09/11/19 Pre-Operative Diagnosis: pprom class b diabetes chtn polyhydramnios Post-Operative Diagnosis: SAME Surgery/ Procedure Performed: Spontaneous Vaginal Delivery Type of Anesthesia: Epidural Description of Procedure: Patient began pushing and delivered the head in the LOUISE presentation. The head was delivered atraumatically and a loose nuchal cord ?1 was identified and easily reduced over the infant's head. The anterior and posterior shoulders delivered without complication followed by the rest of the infant and the infant was placed on the maternal abdomen. Delayed cord clamping was employed for approximately 60 seconds. Cord was clamped and cut and gentle traction was applied to the cord and the placenta delivered spontaneously immediately following it was noted to be intact with three-vessel cord. The perineum and vagina were inspected and noted to have no laceration. EBL was 400 cc. Patient and tolerated delivery well. Presentation: LOUISE Placental Delivery Description: Spontaneous Placenta Disposition: [facility] Cord Vessel Description: 3 Vessels Cord Entanglement: Around neck x 1, loose Estimated Blood Loss: 400 Infant A gender: Male Episiotomy Description: None Laceration: None Medications given after delivery: IV Pitocin, IM Hemabate Complications: None Multi Select Codes - Urinary/Genital Urinary/Genital CPT Codes: 83265 [facility]aginal [facility]
[2019-09-11] MEDS: Labetalol 20 MG/4 ML Vial IV (22:40)
[2019-09-11 23:20] LABS: Bedside Glucose 115 mg/dL (70-110)
[2019-09-11] MEDS: Naproxen 250 MG Tablet 500 MG PO (23:20)
[2019-09-12] VITALS (7 sets, daily range): BP systolic 121–159; BP diastolic 72–84; PULSE 85–98; RESP 16–18; TEMP 36.4–37.1; O2SAT 97–98
[2019-09-12] MEDS: Naproxen 250 MG Tablet 500 MG PO ×2 (08:02→16:47)
[2019-09-12 08:25] LABS: Bedside Glucose 112 mg/dL (70-110)
--- NOTE | 2019-09-12 09:00 | PCM.PN.OB ---
Patient Problems: Active and Suspected Problems (Last Reviewed 09/09/19 @ 15:58 by Janessa Carolina) premature rupture of membranes (PPROM) with onset of labor after 24 hours of rupture in first trimester, antepartum (Acute) Subjective: doing well no complaints pain controlled no CP SOB N V ambulating well tolerating po lochia moderate, going well - Physical Exam Vitals/I&O's: Vital Signs Temp Pulse Resp BP Pulse Ox 98.0 F 98 16 128/80 H 98 09/12/19 07:58 09/12/19 07:58 09/12/19 07:58 09/12/19 07:58 09/12/19 07:58 Oxygen Delivery Method Room Air Weight: 283 lb 2 oz Body Mass Index (BMI) 43.0 Intake and Output for Last 24 Hours 09/10/19 09/11/19 09/12/19 23:59 23:59 23:59 Intake Total 3824.14 / 3824.14 500 / 500 Output Total 1950 / 1950 500 / 500 Balance 1874.14 / 1874.14 0 / 0 General: Alert, Oriented x3 Laboratory Results 09/11/19 08:57: POC Glucose 113 H 09/11/19 10:08: POC Glucose 99 09/11/19 10:51: POC Glucose 107 09/11/19 11:52: POC Glucose 114 H 09/11/19 13:05: POC Glucose 103 09/11/19 13:53: POC Glucose 104 09/11/19 15:03: POC Glucose 91 09/11/19 15:58: POC Glucose 88 09/11/19 17:10: POC Glucose 82 09/11/19 17:59: POC Glucose 78 09/11/19 18:54: POC Glucose 93 09/11/19 19:59: POC Glucose 88 09/11/19 21:02: POC Glucose 92 09/11/19 23:12: POC Glucose 115 H 09/12/19 07:52: POC Glucose 112 H Current Medications Acetaminophen (Tylenol) 1,000 mg PO Q8H PRN PRN PRN Reason: Pain Score 1-3/10 Bisacodyl (Dulcolax) 10 mg RECTAL UD PRN PRN Reason: If no BM Dextrose (D50w Syringe) 0 gm IV X1 PRN; Protocol PRN Reason: Hypoglycemia Dibucaine (Dibucaine) 1 applic TOPICAL TID PRN PRN; Protocol PRN Reason: Discomfort Famotidine (Pepcid) 20 mg PO BID [facility] Glucagon () 1 mg IM .X1 PRN PRN Reason: Hypoglycemia Hydrocortisone (Hytone) 1 applic TOPICAL TID PRN PRN; Protocol PRN Reason: Discomfort Labetalol HCl (Trandate) 200 mg PO BID [facility] Loratadine (Claritin) 10 mg PO DAILY [facility] Methylergonovine Maleate (Methergine) 0.2 mg IM X1 PRN PRN Reason: Excess bleeding/uterine atony Naproxen (Naprosyn) 500 mg PO Q8H PRN PRN PRN Reason: Pain Score 1-3/10 Last Admin: 09/12/19 08:02 Dose: 500 mg Documented by: Ondansetron HCl (Zofran) 4 mg IV Q4H PRN PRN PRN Reason: Nausea Oxycodone HCl (Oxyir) 5 - 10 mg PO Q4H PRN PRN PRN Reason: Pain Score 4-10/10 Multivit/Folic Acid/Iron (Prenatabs Fa) 1 tablet PO DAILY@1200 [facility] Senna/Docusate Sodium (Senokot-S, Daniella-Colace) 1 - 2 tablet PO DAILY PRN PRN PRN Reason: Constipation Simethicone (Mylicon) 80 mg PO PCHS PRN PRN Reason: Indigestion/Stomach pain Sodium Chloride () 5 - 15 ml IV UD PRN PRN Reason: SALINE FLUSH Medical Necessity - Tobacco Use Smoking Status: Never smoker Assessment/Plan All Active Problems (Last Reviewed 09/09/19 @ 15:58 by Janessa Carolina) Abnormal test (Acute) Elevated blood pressure affecting in third trimester, antepartum (Acute) premature rupture of membranes (PPROM) with onset of labor after 24 hours of rupture in first trimester, antepartum (Acute) General counseling and advice for contraceptive management (Acute) Pyelonephritis affecting (Acute) (Acute) Obesity affecting in third trimester (Acute) Modified White class B pregestational diabetes mellitus (Acute) Supervision of high risk in third trimester (Acute) s/p PPD # 1 1. routine post delivery care 2. breast feeding- support given 3. rh positive 4. rubella immune 5. diabetes- start glyburide 2.5 BID, SSI 6. cHTN- continue meds
[2019-09-12] MEDS: Labetalol 200 MG Tablet PO ×2 (10:16→21:40)
[2019-09-12] MEDS: Famotidine 20 MG Tablet PO ×2 (10:17→22:19)
[2019-09-12] MEDS: glyBURIDE 2.5 MG Tablet PO (10:17)
[2019-09-12] MEDS: Loratadine 10 MG Tablet PO (10:17)
--- NOTE | 2019-09-12 10:28 | NURSING ---
Epidural catheter removed at this time. Blue tip intact. Patient tolerated without report of discomfort.
[2019-09-12 12:31] LABS: Bedside Glucose 184 mg/dL (70-110)
[2019-09-12] MEDS: Insulin Lispro 100 UNIT/ML INSULN.PEN SC (15:19)
[2019-09-12 16:46] LABS: Bedside Glucose 189 mg/dL (70-110)
[2019-09-12] MEDS: Acetaminophen 500 MG Tablet 1000 MG PO (20:25)
[2019-09-12 21:00] LABS: Bedside Glucose 177 mg/dL (70-110)
[2019-09-13] MEDS: Naproxen 250 MG Tablet 500 MG PO ×2 (02:46→10:33)
[2019-09-13 02:49] VITALS: BP 139/82; PULSE 95; RESP 18; TEMP 36.6; O2SAT 97
[2019-09-13 03:05] LABS: Bedside Glucose 108 mg/dL (70-110)
--- NOTE | 2019-09-13 03:07 | NURSING ---
Pt. last ate around 1830 on 09/13/19 and requested snack because she was hungry. Since pt.'s last meal was 8 hours ago, this RN obtained a fasting BGT so pt. could have a snack. BGT resulted as 108 mg/dL.
[2019-09-13] MEDS: Acetaminophen 500 MG Tablet 1000 MG PO ×2 (07:58→15:50)
[2019-09-13 08:00] VITALS: BP 131/84; PULSE 82; RESP 16; TEMP 36.5
--- NOTE | 2019-09-13 09:13 | PCM.PN.OB ---
Patient Problems: Active and Suspected Problems (Last Reviewed 09/09/19 @ 15:58 by Janessa Carolina) premature rupture of membranes (PPROM) with onset of labor after 24 hours of rupture in first trimester, antepartum (Acute) Subjective: doing well no complaints pain controlled no CP SOB N V ambulating well tolerating po lochia moderate, going well - Physical Exam Vitals/I&O's: Vital Signs Temp Pulse Resp BP Pulse Ox 97.9 F 95 18 139/82 H 97 09/13/19 02:49 09/13/19 02:49 09/13/19 02:49 09/13/19 02:49 09/13/19 02:49 Oxygen Delivery Method Room Air Weight: 283 lb 2 oz Body Mass Index (BMI) 43.0 Intake and Output for Last 24 Hours 09/11/19 09/12/19 09/13/19 23:59 23:59 23:59 Intake Total 3824.14 / 3824.14 500 / 500 Output Total 1950 / 1950 500 / 500 Balance 1874.14 / 1874.14 0 / 0 General: Alert, Oriented x3 Abdomen: Soft, Non Tender, Non-Distended, - - FF below U Laboratory Results 09/12/19 12:03: POC Glucose 184 H 09/12/19 16:36: POC Glucose 189 H 09/12/19 20:35: POC Glucose 177 H 09/13/19 02:49: POC Glucose 108 Current Medications Acetaminophen (Tylenol) 1,000 mg PO Q8H PRN PRN PRN Reason: Pain Score 1-3/10 Last Admin: 09/13/19 07:58 Dose: 1,000 mg Documented by: Bisacodyl (Dulcolax) 10 mg RECTAL UD PRN PRN Reason: If no BM Dextrose (D50w Syringe) 0 gm IV X1 PRN; Protocol PRN Reason: Hypoglycemia Dibucaine (Dibucaine) 1 applic TOPICAL TID PRN PRN; Protocol PRN Reason: Discomfort Famotidine (Pepcid) 20 mg PO BID [facility] Last Admin: 09/12/19 22:19 Dose: 20 mg Documented by: Glucagon () 1 mg IM .X1 PRN PRN Reason: Hypoglycemia [facility]) [facility] Last Admin: 09/13/19 07:58 Dose: 5 mg Documented by: Hydrocortisone (Hytone) 1 applic TOPICAL TID PRN PRN; Protocol PRN Reason: Discomfort Labetalol HCl (Trandate) 200 mg PO BID [facility] Last Admin: 09/12/19 21:40 Dose: 200 mg Documented by: Loratadine (Claritin) 10 mg PO DAILY [facility] Last Admin: 09/12/19 10:17 Dose: 10 mg Documented by: Methylergonovine Maleate (Methergine) 0.2 mg IM X1 PRN PRN Reason: Excess bleeding/uterine atony Naproxen (Naprosyn) 500 mg PO Q8H PRN PRN PRN Reason: Pain Score 1-3/10 Last Admin: 09/13/19 02:46 Dose: 500 mg Documented by: Ondansetron HCl (Zofran) 4 mg IV Q4H PRN PRN PRN Reason: Nausea Oxycodone HCl (Oxyir) 5 - 10 mg PO Q4H PRN PRN PRN Reason: Pain Score 4-10/10 Multivit/Folic Acid/Iron (Prenatabs Fa) 1 tablet PO DAILY@1200 [facility] Last Admin: 09/12/19 12:00 Dose: Not Given Documented by: Senna/Docusate Sodium (Senokot-S, Daniella-Colace) 1 - 2 tablet PO DAILY PRN PRN PRN Reason: Constipation Simethicone (Mylicon) 80 mg PO PCHS PRN PRN Reason: Indigestion/Stomach pain Sodium Chloride () 5 - 15 ml IV UD PRN PRN Reason: SALINE FLUSH Medical Necessity - Tobacco Use Smoking Status: Never smoker Assessment/Plan All Active Problems (Last Reviewed 09/09/19 @ 15:58 by Janessa Carolina) Abnormal test (Acute) Elevated blood pressure affecting in third trimester, antepartum (Acute) premature rupture of membranes (PPROM) with onset of labor after 24 hours of rupture in first trimester, antepartum (Acute) General counseling and advice for contraceptive management (Acute) Pyelonephritis affecting (Acute) (Acute) Obesity affecting in third trimester (Acute) Modified White class B pregestational diabetes mellitus (Acute) Supervision of high risk in third trimester (Acute) s/p PPD # 2 1. routine post delivery care 2. breast feeding- support given 3. rh positive 4. rubella immune 5. Continue glyberide 5mg bid and see PCP within 2 weeks; sugars currently controlled as is blood pressure 6. discharge today
--- NOTE | 2019-09-13 09:15 | DCINST_ITS ---
Additional Instructions: If you experience any of the following, contact your healthcare provider. * Bleeding that soaks a pad every hour for 2 hours * Fever 100.4 or higher * Unrelieved incision or abdominal pain * Swelling, redness, discharge or bleeding from your incision or episiotomy site * Your incision begins to separate * Problems urinating (including inability to urinate or burning while urinating). * Visual changes * Severe headache * Flu-like symptoms * Pain or redness in one of both of your breasts * Pain, warmth, tenderness or swelling in your legs, especially the calf area * Frequent nausea and vomiting * Symptoms of depression or anxiety If you experience any of the following, call 911 or go to the nearest Emergency Room. * Chest pain * Problems breathing * Seizure activity * Partial or complete paralysis of a body part, slurred speech, weakness or drooping of the face, or a sudden inability to walk or hold your balance Allergies/Adverse Reactions: Allergies clavulanic acid [From Augmentin] Allergy (Mild, Verified 09/09/19 15:58) Anaphylaxis Gadolinium-MRI Contrast Medium Allergy (Mild, Verified 09/09/19 15:58) Rash Sulfa (Sulfonamide Antibiotics) Allergy (Mild, Verified 09/09/19 15:58) Anaphylaxis sulfamethoxazole [From Bactrim] Allergy (Verified 09/11/19 05:38) Anaphylaxis trimethoprim [From Bactrim] Allergy (Verified 09/11/19 05:38) Anaphylaxis Medications to take at Discharge famotidine 20 mg tablet 20 mg PO BID 07/18/19 insulin lispro (U-100) 100 unit/mL subcutaneous cartridge 80 units SC BREAKFAST 07/18/19 loratadine 10 mg tablet 10 mg PO DAILY 07/18/19 vitamin#30 30 mg iron-10 mg iron-folic acid 1 mg-omg3 capsule 1 cap PO DAILY cap 07/18/19 Insulin Lispro 44 unit SQ LUNCH 07/25/19 Insulin NPH Human Isophane [Humulin N Vial] 64 units SQ DAILY 07/25/19 Unisom 25 mg PO QHS PRN 09/02/19 labetalol 200 mg tablet 200 mg PO BID tab 09/10/19 Tylenol 1,000 mg PO Q8H PRN PRN 09/11/19 glyBURIDE [Micronase] 5 mg NG BIDCM #60 tab 09/13/19 The following prescriptions were given: glyBURIDE [Micronase] 5 mg NG BIDCM #60 tab Transmission Status: Received by [facility] Primary Care Physician: HEATHER CÁRDENAS [Other] Test Results: Test results from this visit will be discussed in further detail at your follow- up appointment, if applicable.
[2019-09-13] MEDS: Labetalol 200 MG Tablet PO (10:10)
[2019-09-13] MEDS: Senna/Docusate Sodium 1 Tablet PO (10:36)
[2019-09-13] MEDS: Loratadine 10 MG Tablet PO (11:03)
[2019-09-13] MEDS: Famotidine 20 MG Tablet PO (11:03)
[2019-09-13 11:16] LABS: Bedside Glucose 178 mg/dL (70-110)
[2019-09-13] MEDS: Prenatal Vits Tablet 1 TABLET PO (12:31)
[2019-09-13 14:44] VITALS: BP 109/55; PULSE 90; RESP 12; TEMP 36.3
[2019-09-13 15:11] LABS: Bedside Glucose 164 mg/dL (70-110)
--- NOTE | 2019-09-13 18:06 | NURSING ---
Pt. to hotel at 1800, given verbal and written discharge instructions, prescription sent and picked up by
== END 2019-09-13 18:00 | disposition home or self-care (01) | DRG 805 ==
LOC: WPOUT 05:45 → WP 05:45
PROVIDERS: Admitting Provider Obstetrics & Gynecology; Referring Provider Obstetrics & Gynecology; Visit Provider Obstetrics & Gynecology
DX: O42.119 Preterm premature rupture of membranes, onset of labor more than 24 hours following rupture, unspecified trimester (principal); O24.12 Pre-existing type 2 diabetes mellitus, in childbirth; O60.14X0 Preterm labor third trimester with preterm delivery third trimester, not applicable or unspecified; O10.92 Unspecified pre-existing hypertension complicating childbirth; O40.3XX0 Polyhydramnios, third trimester, not applicable or unspecified; O36.63X0 Maternal care for excessive fetal growth, third trimester, not applicable or unspecified; O69.81X0 Labor and delivery complicated by cord around neck, without compression, not applicable or unspecified; O99.214 Obesity complicating childbirth; E66.9 Obesity, unspecified; Z79.4 Long term (current) use of insulin; Z79.82 Long term (current) use of aspirin; Z3A.36 36 weeks gestation of pregnancy; Z37.0 Single live birth
CPT/HCPCS: 59025; 59050; 82565; 82570; 82962; 84112; 84156; 84450; 84460; 84550; 85025; 85610; 85730; 86850; 86900; 86901; 99218; J7030; J7120; A4216; G0378

== ENCOUNTER 2019-10-31 09:54 | Day surgery (SDC) | payer OTHER, SELFPAY ==
[2019-10-22 13:55] VITALS: BMI 43.0
[2019-10-31 10:10] VITALS: BP 124/96; PULSE 75; RESP 18; TEMP 36.3; O2SAT 96; BMI 38.0
[2019-10-31 10:23] LABS: Hematocrit 39.6 % (37-47); Hemoglobin 12.9 g/dL (12.0-15.0); Mean Corp Hgb Conc 32.6 g/dL (32-36); Mean Corpuscular Hgb 26.9 pg (27.0-32.0); Mean Corpuscular Volume 82.5 fL (81-99); Mean Platelet Vol. 9.6 fl (6.2-12.0); Platelet Count 248 K/mm3 (150-450); RBC Distribution Width CV 13.5 % (11.6-14.6); RBC Distribution Width SD 40.5 fl (35.1-43.9); White Blood Count 10.9 K/mm3 (4.4-11.0)
[2019-10-31] MEDS: Lactated Ringers 1,000 ML 100 ML IV (10:35)
[2019-10-31 10:36] LABS: Bedside Glucose 145 mg/dL (70-110)
[2019-10-31 10:50] LABS: Internal QC Validated? YES +Cl - CLEAR BKGD; Pregnancy, Serum, hCG Quali. NEGATIVE Negative
--- NOTE | 2019-10-31 10:53 | PCM.HPOB.BLA ---
- Problem List (1) Elevated blood pressure affecting in third trimester, antepartum Status: Acute Comment: triage and labs done 09/08- serial bps initially high and then WNL. dc home preeclampsia precautions, [facility] recommends delivery immediately if develops preeclampsia (2) General counseling and advice for contraceptive management Status: Acute Comment: Wants pp BTO (3) Modified White class B pregestational diabetes mellitus Status: Acute Comment: last HgA1c 6.2, managed by [facility]:32 week US there 98% growth twice weekly testing: BPP at [facility] and NST at [facility] Growth US there at 36 week History and Physical Date of Admission: 10/31/19 Intake Vital Signs 10/22/19 BMI 43.0 10/22/19 Height 5 ft 8 in 10/22/19 Weight: 250 lb 10/22/19 BMI 38.0 10/22/19 BP 146/95 H Intake Visit Reasons: 6w pp/ PRE OP 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 Accompanied by: Is patient in pain?: No Allergies clavulanic acid [From Augmentin] Allergy (Mild, Verified 10/22/19 13:53) Anaphylaxis Gadolinium-MRI Contrast Medium Allergy (Mild, Verified 10/22/19 13:53) Rash Sulfa (Sulfonamide Antibiotics) Allergy (Mild, Verified 10/22/19 13:53) Anaphylaxis sulfamethoxazole [From Bactrim] Allergy (Verified 10/22/19 13:53) Anaphylaxis trimethoprim [From Bactrim] Allergy (Verified 10/22/19 13:53) Anaphylaxis Medications loratadine 10 mg tablet 10 mg PO DAILY 07/18/19 [History Confirmed 10/22/19] vitamin#30 30 mg iron-10 mg iron-folic acid 1 mg-omg3 capsule 1 cap PO DAILY cap 07/18/19 [History Confirmed 10/22/19] labetalol 200 mg tablet 200 mg PO BID tab 09/10/19 [History Confirmed 10/22/19] glyBURIDE [Micronase] 5 mg NG BIDCM #60 tab 09/13/19 [Rx Confirmed 10/22/19] semaglutide 0.25 mg SC QWEEK 10/22/19 [History Confirmed 10/22/19] : Yes [facility] Medical History Diabetes (Acute) PCOS (polycystic ovarian syndrome) (Acute) Hypertension (Chronic) Surgical History History of wisdom tooth extraction, class II edentulism (Acute) Hx laparoscopic cholecystectomy (Acute) Family History Grandmother Diabetes Hypertension Grandfather Diabetes Hypertension Social History (Updated 10/22/19 @ 14:06 by Adele Ortez MD) Smoking Status: Never smoker alcohol intake: never substance use type: does not use caffeine: Yes what type of physical activity do you participate in: walking seatbelt use: always do you feel safe at home: Yes 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 Date Name GA/Weeks Outcome Route Bth Weight Gen Labor Lgth Anesthesia Del [facility] Provider FOB Unknown 2015 Edith 38 live - full term 8lbs 2oz Female epidural [facility] Dr. Macdonald 09/11/19 Jone 36 live - 9lbs 2oz Male epidural [facility] Delivery Date: On 07/18/19 @ 10:07 Gloria Guardado cytotec, pit Delivery Date: 09/11/19 On 09/15/19 @ 09:02 Lilliana Sanchez PPROM, Insulin Dep DM, CHTN POLY Depression Screen PHQ-2/9 PHQ-2 Over the last 2 weeks, how often have you been bothered by any of the following problems? 1. Little interest or pleasure in doing things: not at all 2. Feeling down, depressed, or hopeless: not at all Total score: 0 If score is 2 or greater, continue Source: Developed by Drs. Volodymyr Ponce, Ami March, Vikas Chavira and colleagues, with an educational gia from [employer]. Scoring: Total Score Depression Severity Action 1-4 Minimal depression No action needed 5-9 Mild depression Repeat PHQ-9 at follow up 10-14 Moderate depression Make tx plan,consider counseling, fup, prescription 15-19 Moderately severe depression Prescribe drugs and counseling immediately 20-27 Severe depression If poor response, refer pt to mental health specialist Post HPI 6w pp/ PRE OP: Details: LAURA GONZALEZ is a 29 year old who presents for her post visit. Feeding: Bottle Menses resumed: No [place] since delivery: No Emotional Support: Yes Last Pap:: 2019 nl ROS Const Reports system reviewed and no additional complaints, except as docu GI Reports system reviewed and no additional complaints, except as docu, Denies bloating, Denies constipation, Denies nausea, Denies vomiting Reports system reviewed and no additional complaints, except as docu, Denies abnormal vaginal bleeding, Denies pelvic pain, Denies sexual problems, Denies urinary incontinence, Denies urinary hesitancy, Denies urinary urgency, Denies vaginal discharge Skin/Breast Reports system reviewed and no additional complaints, except as docu, Reports as per HPI Psych Reports as per HPI Exam Const General: cooperative, healthy appearing, comfortable, no acute distress HENMT Head: normal to inspection Neck Neck: normal visual inspection, no lymphadenopathy Thyroid: thyroid normal Chest Breast inspection: normal inspection of the breasts, normal inspection of the axillae Breast palpation: normal palpation of the breasts, normal palpation of the axillae Resp Effort & Inspection: normal respiratory effort GI Inspection: normal to inspection Palpation: soft, no hepatosplenomegaly, nontender General: bladder normal to palpation External Female Exam: normal external appearance, normal appearance of the urethra Urethra: normal appearance of the urethra Speculum Exam - Vagina: normal appearance of the vagina, normal vaginal discharge Speculum Exam - Cervix: normal appearance of the cervix Bimanual Exam- Vagina & Uterus: normal bimanual exam, uterine size normal, bladder normal to palpation, uterine shape normal, uterus non-tender Bimanual Exam- Adnexa, other: normal adnexae, pelvic support normal Pelvic Support: normal Skin General: no rashes or lesions noted Assessment & Plan Problems 1. care and examination Z39.2 Plan Cervical cancer screening: pap up to date Contraceptive plans: plan BTL Complications: diabetes Follow up for annual exams or sooner if indicated. Coding Level of Care Code No Charge Diagnoses care and examination Z39.2 UPDATE- I have seen the patient and performed any clinically relevant updates to the history and physical exam. Adele Ortez MD
--- NOTE | 2019-10-31 11:30 | FALS_PTH ---
PATIENT: LAURA GONZALEZ LOC: [facility] [place] U#:[id number] AGE/SX: 29/F ROOM: RE10/31/[address]: Dr. Adele Ortez MD : 1990 BED: DIS: 10/31/2019 SPEC #: [id number] RECD: 10/31/19 15:50 STATUS: MARIANNA NINA #: [id number] MARIO: 10/31/19 11:[address]: Adele Ortez DEPT: SURGICAL PATHOLOGY RECD BY: Riana Fraire Tissues: Fallopian tube Procedures: Surgery Specimen Level II HEADER OPERATION: Laparoscopic salpingectomy PRE-OP DIAGNOSIS: Desires sterilization TISSUE SUBMITTED: Bilateral fallopian tubes MICROSCOPIC DIAGNOSIS Right and left fallopian tubes, bilateral salpingectomies: Two complete cross-sections of fallopian tubes with no pathologic change. AM:sasha 11/04/19 MICROSCOPIC DESCRIPTION Slides are reviewed. GROSS DESCRIPTION Received is one container labeled with the patient's name and designated bilateral fallopian tubes. The specimen consists of two fallopian tubes with an average length of 8.9 cm and has an average diameter of 0.8 cm. Both fallopian tubes have normal fimbriated ends. No mass lesions are identified. Calender Feeder sections are submitted in two cassettes as follows: 1 - one fallopian tube, 2 - the other fallopian tube. / AM:sasha 11/03/19 TC:4 CPT: 59858 x2
[2019-10-31] MEDS: Bupivacaine 0.25% 30 ML Vial (12:41)
[2019-10-31 13:05] VITALS: BP 124/96; BP 136/87; PULSE 84; RESP 18; TEMP 36.2; O2SAT 95
--- NOTE | 2019-10-31 13:07 | OP.PCM_ITS ---
Problem List (1) Elevated blood pressure affecting in third trimester, antepartum Status: Acute Comment: triage and labs done 09/08- serial bps initially high and then WNL. dc home preeclampsia precautions, [facility] recommends delivery immediately if develops preeclampsia (2) General counseling and advice for contraceptive management Status: Acute Comment: Wants pp BTO (3) Modified White class B pregestational diabetes mellitus Status: Acute Comment: [facility] 6.2[facility]% growth twice weekly testing: BPP at [facility] and NST at [facility] Growth US there at 36 week Report of Operation Date of Procedure: 10/31/19 Pre-Operative Diagnosis: sterilization Post-Operative Diagnosis: same Surgery/Procedure Performed:: Laparoscopic bilateral salpingectomy Description of Surgical Findings:: Soft uterus long fallopian tubes normal ovaries bilaterally environmental studies professor: eNda Martinez Type of Anesthesia:: General Special Medications: floseal Specimen's removed: tubes Drains: none Estimated Blood Loss (mL): 75 Fluids Replaced: crystalloid Description of Procedure: Patient was taken in the operating room and was placed under general anesthesia was prepped and draped in normal sterile fashion in the dorsal lithotomy position. Bladder was drained of clear urine and SCDs were on preoperatively. Uterus was sounded and a uterine manipulator was placed after dilating. Attention was then paid to the abdominal portion of the procedure and the umbilicus was elevated with towel clamps and injected with Marcaine and after a 5 mm incision was made and the Veress needle was entered into the abdomen confirmed to be intra-abdominal with a low opening pressure of less than 5 mmHg. Abdomen was insufflated with CO2 gas and a 5 mm optical trocar was placed under direct visualization. A left lower quadrant 5 mm port and a 5 mm port suprapubically were placed under direct visualization. Uterus was well visualized and bilateral fallopian tubes identified and bilateral tubes were elevated and transecting across the mesosalpinx and the attachment to the uterine corpus bilaterally. It was noted that there was a uterine perforation and therefore the uterine manipulator was moved and this almost perforated through the underside of the uterus due to a significantly soft uterus . Additional port site was placed in the right lower quadrant and the tubes were transected completely bilaterally and removed without complication. Cautery was used on the left mesosalpinx to obtain excellent hemostasis and FloSeal was also placed over the area of uterine perforation in this area. Excellent hemostasis was noted. Fallopian tubes were removed through the lower port sites without complication. Liver and upper abdomen were visualized notably within normal limits and no other gross abnormalities were seen in the abdomen. All instruments removed from the abdomen after gas was desufflated. Port sites were closed with 3-0 Monocryl Steri's and op sites were applied. All instruments removed from the vagina and patient was awoken and taken recovery in stable condition. Grafts/Implants Used: none - Complications uterine perforation - Admit VTE Documentation VTE Present on Admission: No Multi Select Codes - Urinary/Genital Urinary/Genital CPT Codes: 09958 Laproscopic BS/O
--- NOTE | 2019-10-31 13:13 | DCINST_ITS ---
Discharge Diet: No Restrictions - Increase fluid intake for the next 48 hours. Discharge Activity: Return to Normal Activity, May Drive - when you are no longer taking narcotic pain medications., May Shower, May Take a Tub Bath - in 7 days Additional Activity Instructions:: Ambulate often the next week after surgery. Nothing in the vagina for 5 days. Call your doctor if your incision/area has: Continuous Slow Oozing, Sudden Increased Bleeding, Increased Pain/ Swelling, Increased Redness, Foul Smelling Discharge Call your doctor if you observe: Fever of 101 or Higher Allergies/Adverse Reactions: Allergies clavulanic acid [From Augmentin] Allergy (Mild, Verified 10/24/19 08:49) Anaphylaxis Gadolinium-MRI Contrast Medium Allergy (Mild, Verified 10/24/19 08:49) Rash Sulfa (Sulfonamide Antibiotics) Allergy (Mild, Verified 10/24/19 08:49) Anaphylaxis sulfamethoxazole [From Bactrim] Allergy (Verified 10/24/19 08:49) Anaphylaxis trimethoprim [From Bactrim] Allergy (Verified 10/24/19 08:49) Anaphylaxis Medications to take at Discharge loratadine 10 mg tablet 10 mg PO DAILY PRN 07/18/19 labetalol 200 mg tablet 200 mg PO BID tab 09/10/19 glyBURIDE [Micronase] 5 mg NG BIDCM #60 tab 09/13/19 semaglutide 0.25 mg SC QWEEK 10/22/19 Naproxen [Naprosyn] 250 - 500 mg PO Q8H PRN PRN #30 tab 10/31/19 Oxycodone HCl/Acetaminophen [Percocet 5-325] 1 - 2 tablet PO Q6H PRN PRN 7 Days #15 tablet 10/31/19 The following prescriptions were given: Naproxen [Naprosyn] 250 - 500 mg PO Q8H PRN PRN #30 tab PRN Reason: MILD PAIN Transmission Status: Pending to [facility] Oxycodone HCl/Acetaminophen [Percocet 5-325] 1 - 2 tablet PO Q6H PRN PRN 7 Days #15 tablet PRN Reason: Pain Transmission Status: Sent to [facility] Primary Care Physician: HEATHER CÁRDENAS [Other] Test Results: Test results from this visit will be discussed in further detail at your follow- up appointment, if applicable. Please Follow Up With: Adele Ortez MD - [phone]
[2019-10-31 13:15] VITALS: BP 124/96; BP 140/87; PULSE 69; RESP 16; O2SAT 95
[2019-10-31 13:30] VITALS: BP 124/81; BP 124/96; PULSE 89; RESP 16; O2SAT 93
[2019-10-31 13:42] VITALS: BP 124/96; BP 128/83; PULSE 84; RESP 16; TEMP 36.3; O2SAT 94
[2019-10-31] MEDS: HYDROcodone Bitartrate/Apap 5/325 Tablet PO (14:01)
[2019-10-31 14:53] VITALS: BP 124/96; BP 146/97; PULSE 85; RESP 16; TEMP 36.6; O2SAT 97
== END 2019-10-31 15:01 | disposition home or self-care (01) ==
LOC: SDC 09:55 → AC 09:57
PROVIDERS: Referring Provider Obstetrics & Gynecology; Visit Provider Obstetrics & Gynecology
PROC: (CPT 58661; principal; 2019-10-31 11:15)
DX: Z30.2 Encounter for sterilization (principal); E11.9 Type 2 diabetes mellitus without complications; I10 Essential (primary) hypertension; Z88.2 Allergy status to sulfonamides; Z88.1 Allergy status to other antibiotic agents; Z88.0 Allergy status to penicillin; Z79.84 Long term (current) use of oral hypoglycemic drugs; Z79.899 Other long term (current) drug therapy
CPT/HCPCS: 58661; 36415; 82962; 84703; 85027; 86850; 86900; 86901; 88302; J7120; C1760; J2405